=== PATIENT | female | born 1970 | race Caucasian/White ===

== ENCOUNTER 2019-09-08 10:37 | Day surgery (SDC) | payer BC, OTHER ==
[2019-08-31 14:30] VITALS: BMI 27.4
[2019-09-08] MEDS ORDERED: CEFAZOLIN 2 GM in DEXTROSE 5%-WATER - 50 ML IVPB ONE (12:00)
[2019-09-08] MEDS ORDERED: MIDAZOLAM HCL 2 MG/2 ML SINGLE DOSE VIAL ONE (12:36)
[2019-09-08] MEDS ORDERED: PROPOFOL 20 ML ONE ×2 (12:37→13:49)
[2019-09-08] MEDS ORDERED: LIDOCAINE HCL 2% (20ML MULTI-DOSE VIAL) ONE (12:41)
[2019-09-08] MEDS ORDERED: ceFAZolin SODIUM 1 GM VIAL IVPB ONE (13:30)
--- NOTE | 2019-09-08 14:21 | OP ---
Operative Note - Note: Operative Date: 09/08/19 Pre-Operative Diagnosis: Right carpal tunnel syndrome Operation: Right carpal tunnel release Post-Operative Diagnosis: Same as Pre-op Surgeon: Jv Blackmon Anesthesiologist/[employer]LECT[employer]IC [employer]SEM[employer]ER: Ulises Ventura Anesthesia: General Estimated Blood Loss (mls): 30 Fluid Volume Replaced (mls): 400
[2019-09-08] MEDS ORDERED: oxyCODONE HCL 5 MG TABLET ONE (15:40)
[2019-09-08] MEDS ORDERED: oxyCODONE HCL 5 MG TABLET PO PRN (15:43)
[2019-09-08 16:27] VITALS: BP 110/66; PULSE 78; TEMP 98.1
--- NOTE | 2019-09-11 08:54 | OP ---
DATE OF OPERATION: DATE OF DICTATION: 09/08/2019 PREOPERATIVE DIAGNOSIS: Carpal tunnel syndrome, right. POSTOPERATIVE DIAGNOSIS: Carpal tunnel syndrome, right. OPERATION PERFORMED: Right carpal tunnel release. ANESTHESIA: General. OPERATION DETAILS: Patient correctly identified. Brought to the operating room. Right upper extremity prepped, draped in the routine manner with Betadine scrub solution, wiped off with alcohol, DuraPrep applied. Time-out was called. A free drape of the upper limb performed. The incision was made in the primary palmar crease just up to the line of the wrist. The palmar aponeurosis was , and the transverse fibers of the flexor retinaculum of the carpal tunnel identified. This was incised using a 15 blade and then a Metzenbaum scissors was utilized to extend the freeing of the retinaculum into the distal aspect of the forearm sliding the scissors to release the fascial plane accordingly. This also was extended up into the wrist up to the safe zone in terms of the palmar arch artery. The nerve was inspected. It was white in color. No neurolysis was performed. On palpation, there was no intercanal lesion to be noted such as a ganglion or any exostosis. The wounds were thoroughly lavaged. Hemostasis was achieved, and the skin was closed with 4-0 nylon vertical interrupted sutures. Operation went well. No complications. MD ALEXI [id number]
== END 2019-09-08 16:27 | disposition home or self-care (01) ==
LOC: FASU 10:37
PROVIDERS: ATTEND Orthopaedic Surgery Orthopaedic Surgery of the Spine
PROC: 01N50ZZ Release Median Nerve, Open Approach (ICD-10-PCS; principal; 2019-09-08 12:00)
DX: G56.01 Carpal tunnel syndrome, right upper limb (principal)
CPT/HCPCS: 94760